=== PATIENT | male | born 1980 | race Caucasian/White ===

== ENCOUNTER 2016-05-27 16:31 | Emergency (ER) | payer SELFPAY | END 2016-05-27 23:10 | disposition home or self-care (01) | LOC: D.ER 16:31 | DX: R07.89 Other chest pain (principal); V89.2XXA Person injured in unspecified motor-vehicle accident, traffic, initial encounter; Y93.89 Activity, other specified; Y92.410 Unspecified street and highway as the place of occurrence of the external cause ==

== ENCOUNTER 2020-07-02 00:51 | Observation (INO) | payer SELFPAY ==
[~2020-07-02] VITALS: Ht 175.3 cm; Wt 113.4 kg
--- NOTE | ~2020-07-02 | OP ---
PATIENT NAME: MIKE MARTÍNEZ MEDICAL RECORD: [id number] :84 LOCATION:[id number] ADMISSION DATE:07/02/20 SURGEON: SETH TALBERT MD DATE OF OPERATION: 07/03/2020 PREOPERATIVE DIAGNOSIS: Symptomatic gallstones. POSTOPERATIVE DIAGNOSES: 1. Acute cholecystitis. 2. Hepatomegaly. PROCEDURE: 1. Laparoscopic cholecystectomy. 2. Intraoperative cholangiography without immediate surgeon interpretation. 3. A 14-gauge core needle liver biopsy. SURGEON: Seth Talbert MD CLOTHER IN: None. BLOOD LOSS: 50 cc. ANESTHESIA: General. DRAINS: Times one (10-[place]er round Nilesh drain). COMPLICATIONS: None. The indication for the liver biopsy was hepatomegaly. The risks, possible complications, and alternatives of the procedure were explained to the patient. He elects to proceed. The discussion specifically included, but not limited to bleeding requiring emergency reoperation, infection, intestinal injury, common bile duct injury. OPERATIVE COURSE: The patient was conveyed to the operating room electively on 07/03/2020. General anesthesia was induced by anesthesia staff. The abdomen was sterilely prepped and draped. A small skin incision was accomplished in the left upper quadrant. Veress needle was inserted through the skin incision into the peritoneal cavity. CO2 insufflation was begun. Once a sufficient pneumoperitoneum had been achieved, a 5-mm trocar was inserted through this incision in the left upper quadrant. Under direct internal vision utilizing a television camera, a 12-mm trocar was inserted through the incision at the umbilicus. Another 5-mm trocar was inserted through an incision in the epigastrium and another 5-mm trocar was inserted through an incision far laterally in the right upper quadrant. During insertion of the Veress needle and all trocars, there appeared to had been no injury to the bowels, any intraperitoneal or retroperitoneal structures. Abdominal survey was undertaken. No adhesions were noted. The liver was enlarged. The gallbladder was acutely inflamed. Under laparoscopic guidance, I percutaneously accessed the right upper quadrant utilizing a 14-gauge core biopsy device. Cores were obtained over the convexity of the liver. The biopsy sites were made hemostatic with the electrocautery. OPERATIVE REPORT [id number] MIKE MARTÍNEZ I then advanced a cholangiogram trocar. I punctured the fundus of the gallbladder and inflamed gallbladder. I aspirated bile. I then injected dye. Realtime clear angiographic images were obtained. These were sent to the radiologist for interpretation. There appeared to be an obstructing stone in the infundibulum of the gallbladder. I aspirated bile. I then removed the cholangiogram trocar. The gallbladder was grasped and retracted cephalad. The infundibulum was grasped and retracted laterally. Blunt dissection was begun in the triangle of [place]ot. One cystic artery and one cystic duct were identified. These were clipped multiply and divided between clips. The gallbladder was excised from its bed in the liver. It was placed within a bag retrieval device and was withdrawn through the umbilical fascial defect. The 12-mm trocars were placed and the abdomen reinsufflated. I irrigated and aspirated the right upper quadrant. There was no bleeding even at low pressure of 8. Evicel was added to the gallbladder fossa for additional hemostasis. A 10-[place]er round Nilesh drain was advanced out through the lateral most trocar site. I cut the umbilicus at the Uli-Rema suture closure device and 0 Vicryl sutures were used to close the umbilical fascia. All the trocars were removed and the abdomen desufflated. The drain was sutured to the skin with 2-0 nylon. The skin at the umbilicus was closed with interrupted 4-0 Vicryl Rapide sutures. The skin at the other trocar sites was closed with interrupted intracuticular 3-0 Vicryls. Benzoin and Steri-Strips were applied. The patient was then extubated and conveyed to post-anesthesia care unit where he was in stable condition. PLAN: He will be dismissed home tomorrow if there is no bilious drainage from the drain. TRANSINT:[id number] Voice Confirmation ID: [id number] DOCUMENT ID: [id number] SETH TALBERT MD CC: [id number] DICTATION DATE: 07/04/20 1603 STATOR PLATE WASHER: 07/04/20 2336 DIS IN 07/04/20 [id number] [place] [id number]
[2020-07-02 01:14] LABS: BASOPHILS 0.2 % (0-2); EOSINOPHILS 0.6 % (0-7); HEMATOCRIT 44.6 % (42.0-54.0); HEMOGLOBIN 15.3 g/dL (13.5-17.5); IMMATURE GRANULOCYTES 0.4 % (0-5); LYMPHOCYTE ABS# 2.04 10x3/uL (1.32-3.57); MCH 31.4 pg (26.0-34.0); MCHC 34.3 g/dL (31.0-37.0); MCV 91.4 fL (80.0-100.0); MEAN PLATELET VOLUME 11.2 fL (7.4-10.4); NEUTROPHIL ABS# 9.82 10x3/uL (1.78-5.38); NEUTROPHILS 76.8 % (40-80); PLATELET COUNT 314 10x3/uL (130-400); RBC 4.88 10x6/uL (4.20-6.10); RDW 12.7 % (11.5-14.5); WBC 12.8 10x3/uL (4.8-10.8)
[2020-07-02 01:20] LABS: CALC OSMOLALITY 279 mosm/kg (275-300); CALCIUM 9.3 mg/dL (8.5-10.1); CARBON DIOXIDE 24.9 mmol/L (21.0-32.0); CHLORIDE - SERUM 101 mmol/L (98-107); GLUCOSE 152 mg/dL (74-106); SODIUM 137 mmol/L (136-145); UREA NITROGEN 22 mg/dL (7-18); eGFR NON AFRICAN AMERICAN 89 mL/min (90-120)
[2020-07-02 01:22] LABS: APTT 26.9 SECONDS (22.8-39.4); INR 0.96 (0.85-1.17); PROTIME 11.8 SECONDS (11.6-15.0)
[2020-07-02 01:23] LABS: D-DIMER-QUANTITATIVE < 0.27 ug/mLFEU (0.20-0.54)
[2020-07-02 01:32] LABS: ALBUMIN 3.9 g/dL (3.4-5.0); ALKALINE PHOSPHATASE 62 U/L (30-120); ALT (SGPT) 26 U/L (10-68); BILIRUBIN - TOTAL 0.19 mg/dL (0.2-1.3); LIPASE 92 U/L (73-393); PROTEIN - SERUM 7.8 g/dL (6.4-8.2); TROPONIN-I < 0.017 ng/mL (0.000-0.060)
--- NOTE | 2020-07-02 04:45 | NUR ---
PT ARRIVED ON UNIT VIA STRETCHER, ESCORTED BY ER NURSE. POSITIONED IN BED FOR COMFORT. ORIENTED TO ROOM AND CALL LIGHT. ARRIVED LATER AND IS AT BEDSIDE. IV TO RIGHT AC SALINE LOCKED.
--- NOTE | 2020-07-02 04:55 | NUR ---
PLACED TELEMETRY ON PT PER ORDER.
--- NOTE | 2020-07-02 04:56 | NUR ---
STARTED IV FLUIDS: NS @ 150 ML/HR, PER ORDER. RIGHT AC IV FLUSHES WELL.
--- NOTE | 2020-07-02 05:00 | NUR ---
HIBACLENS BATH PERFORMED WITH SPOUSE ASSIST AND CLEAN GOWN PLACED.
--- NOTE | 2020-07-02 05:10 | NUR ---
GAVE DILAUDID 1 MG IVP PER PRN ORDER FOR C/O SEVERE ACHING PAIN IN ABDOMEN. WILL MONITOR FOR EFFECTIVENESS.
[2020-07-02 05:11] VITALS: BP 147/94; BMI 37.0
--- NOTE | 2020-07-02 09:57 | NUR ---
WAS MEDICATED WITH DILAUDID PER ORDERS OR C/O ABD PAIN RATING 8/10 ON PAIN SCALE. C/L IN REACH AT BEDSIDE.
[2020-07-02 10:37] LABS: BILIRUBIN NEGATIVE (NEGATIVE); KETONE NEGATIVE (NEGATIVE); NITRITE NEGATIVE (NEGATIVE); UROBILINOGEN NORMAL mg/dL (< 2)
[2020-07-02 13:45] VITALS: Ht 175.3 cm; Wt 113.4 kg
--- NOTE | 2020-07-02 14:51 | NUR ---
I have reviewed this patient and I concur with the Shift Assessment completed by the Licensed Practical Nurse today this shift.
[2020-07-02 15:25] VITALS: BP 138/94
[2020-07-02 18:35] VITALS: BP 136/79
[2020-07-02 20:00] VITALS: BP 146/96
[2020-07-03] VITALS: BP 132/86
[2020-07-03 04:00] VITALS: BP 122/83; BP 136/74
--- NOTE | 2020-07-03 07:15 | NUR ---
REC'D IN ROOM AWAKE AND ALERT. RESP EVEN AND UNLABORED WITH NO DISTRESS NOTED. CAN EXPRESS NEEDS AND WANTS. C/O ABD PAIN RATING 8/10 ON PAIN SCALE. TURN AND REPOSITION SELF AND UP AB MARIA ABOUT ROOM. ASSESSMENT COMPLETED. C/L IN REACH Q BEDSIDE.
--- NOTE | 2020-07-03 07:57 | NUR ---
WAS MEDICATED WITH DILAUDID PER ORDERS OR C/O ABD PAIN RATING 8/10 ON PAIN SCALE. C/L IN REACH AT BEDSIDE.
[2020-07-03 08:50] VITALS: BP 121/79
--- NOTE | 2020-07-03 13:00 | NUR ---
I have reviewed this patient and I concur with the Shift Assessment completed by the Licensed Practical Nurse today this shift.
[2020-07-03 13:10] VITALS: BP 118/74
--- NOTE | 2020-07-03 15:40 | NUR ---
OFF FLOOR AT THIS TIME TO SURGERY SUITE. STABLE CONDITION ON DEPARTURE.
--- NOTE | 2020-07-03 15:41 | NUR ---
WAS MEDICATED WITH DILAUDID PER ORDERS OR C/O ABD PAIN RATING 8/10 ON PAIN SCALE. C/L IN REACH AT BEDSIDE.
[2020-07-03 19:08] VITALS: BP 136/76
[2020-07-03 19:48] VITALS: BP 141/80
[2020-07-04 04:00] VITALS: BP 109/73
--- NOTE | 2020-07-04 07:59 | NUR ---
RESTING IN BED, NO DISTRESS NOTED, TELE IN PLACE, CONT TO MONITOR PAIN, PT HAS STUDENT NURSE TODAY, SCD IN PLACE
[2020-07-04] MEDS ORDERED: HYDROCODONE-AC1 EAC2 PO (08:53)
[2020-07-04] MEDS ORDERED: COLACE100 MG PO (08:53)
[2020-07-04 08:56] VITALS: BP 125/91
--- NOTE | 2020-07-04 10:08 | NUR ---
PT TO DC HOME,CONT TO MONITOR
--- NOTE | 2020-07-04 10:21 | NUR ---
REV DC INSTRUCTIONS WITH PT AND DC MEDS, VOICED NO CONCERNS, STUDENT TO REMOVE ANTELMO DRAIN AND IV WITH INSTRUCTOR
--- NOTE | 2020-07-04 10:45 | NUR ---
TAKEN TO PRIVATE VEHICLE PER WC
== END 2020-07-04 10:45 | disposition home or self-care (01) ==
LOC: D.ER 00:51 → D.MS 04:04 → OBSVTIME 04:05 → D.MS 07-04 10:45
PROVIDERS: Family Medicine; ADMIT Surgery; ATTEND Surgery
DX: K81.0 Acute cholecystitis (principal); R16.0 Hepatomegaly, not elsewhere classified; R10.13 Epigastric pain; R11.2 Nausea with vomiting, unspecified; D72.829 Elevated white blood cell count, unspecified